=== PATIENT | male | born 1950 | race African-American/Black ===

== ENCOUNTER 2019-06-09 08:51 | Emergency (ER) | payer OTHER ==
[~2019-06-09] VITALS: Ht 175.3 cm; Wt 80.1 kg
[2019-06-09] MEDS ORDERED: IOVERSOL 350 MG/ML 100 ML VIAL ONE (09:02)
[2019-06-09] MEDS ORDERED: MULT-412 PO (09:10)
[2019-06-09] MEDS ORDERED: ASCO500 PO (09:10)
[2019-06-09] MEDS ORDERED: CETI10TA59 PO (09:10)
[2019-06-09] MEDS ORDERED: ASPI-891 PO (09:10)
[2019-06-09] MEDS ORDERED: METO25 PO (09:10)
[2019-06-09] MEDS ORDERED: TEST5GEL TD (09:10)
[2019-06-09] MEDS ORDERED: LOSA25TA41 PO (09:10)
[2019-06-09] MEDS ORDERED: SIMV-261 PO (09:10)
[2019-06-09] MEDS ORDERED: FERR134T2 PO (09:10)
[2019-06-09] MEDS ORDERED: IPRA3S NASAL (09:10)
[2019-06-09 09:17] LABS: BASOPHILS % (AUTO) 0.6 % (0.0-2.0); HEMATOCRIT 34.9 % (41-53); HEMOGLOBIN 11.8 g/dL (13.5-17.5); LYMPHOCYTES # (AUTO) 1.3 K/uL (1.0-4.8); LYMPHOCYTES % (AUTO) 35.2 % (22.0-44.0); MEAN CORPUSCULAR HEMOGLOBIN 31.8 pg (26.0-34.0); MEAN CORPUSCULAR HGB CONC 33.7 G/dL (31.0-37.0); MEAN CORPUSCULAR VOLUME 94 fL (80-100); MONOCYTES # (AUTO) 0.3 K/uL (0.1-1.0); NEUTROPHILS # (AUTO) 1.9 K/uL (1.8-7.7); NEUTROPHILS % (AUTO) 53.2 % (40.0-70.0); PLATELET COUNT (AUTO) 163 K/uL (150-450); RED CELL DISTRIBUTION WIDTH 14.6 % (11.5-14.5)
[2019-06-09 09:29] LABS: ANION GAP 4 mmol/L (8-16); CALCIUM, TOTAL 8.5 mg/dL (8.8-10.5); CARBON DIOXIDE 31 mmol/L (22-29); CHLORIDE 105 mmol/L (98-107); CREATININE 0.98 mg/dL (0.60-1.30); GLOMERULAR FILTR. RATE CALC > 60 mL/min (>60); GLUCOSE,RANDOM 73 mg/dL (70-110); POTASSIUM 4.2 mmol/L (3.5-5.1); SODIUM SERUM 140 mmol/L (136-145); UREA NITROGEN, BLOOD 15 mg/dL (7-18)
[2019-06-09 09:34] LABS: ALANINE AMINOTRANSFERASE 36 U/L (12-78); ALBUMIN 3.5 g/dL (3.4-5.0); ALKALINE PHOSPHATASE 196 U/L (46-116); ASPARTATE AMINOTRANSFERASE 26 U/L (15-37); BILIRUBIN,TOTAL 0.3 mg/dL (0.1-1.0); PROTHROMBIN TIME 10.5 SEC (9.4-11.6); TOTAL PROTEIN, SERUM 6.5 g/dL (6.4-8.2)
[2019-06-09 09:37] LABS: GLUCOSE,POINT OF CARE 79 MG/DL (70-110)
[2019-06-09] MEDS ORDERED: ASPIRIN 325 MG TABLET PO ONE (10:45)
[2019-06-09 11:04] VITALS: BP 128/69
[2019-06-09 12:11] LABS: APPEARANCE,URINE CLEAR (CLEAR); BILIRUBIN,URINE NEGATIVE (NEGATIVE); GLUCOSE, URINE (UA) NEGATIVE (NEGATIVE); KETONES,URINE NEGATIVE (NEGATIVE); LEUKOCYTE ESTERASE ,URINE NEGATIVE (NEGATIVE); NITRATE,URINE NEGATIVE (NEGATIVE); OCCULT BLOOD,URINE NEGATIVE (NEGATIVE); PROTEIN,URINE NEGATIVE (NEGATIVE); UROBILINOGEN,URINE 0.2 mg/dL (<=1.0)
[2019-06-09 12:25] LABS: AMPHET/METH SCREEN,URINE NEGATIVE (NEGATIVE); BARBITURATE SCREEN, URINE NEGATIVE (NEGATIVE); BENZODIAZEPINES SCREEN,URINE NEGATIVE (NEGATIVE); CANNABINOID SCREEN,URINE NEGATIVE (NEGATIVE); COCAINE SCREEN,URINE NEGATIVE (NEGATIVE); METHADONE SCREEN, URINE NEGATIVE (NEGATIVE); OPIATE SCREEN,URINE NEGATIVE (NEGATIVE)
[2019-06-09 12:26] LABS: BACTERIA,URINE None Seen /HPF (None Seen); PHENCYCLIDINE SCREEN,URINE NEGATIVE (NEGATIVE); RBC,URINE None Seen /HPF (0-2); WBC,URINE None Seen /HPF (0-5)
== END 2019-06-09 11:56 | disposition short-term general hospital (02) ==
LOC: EMS 08:52
DX: G45.9 Transient cerebral ischemic attack, unspecified (principal)
CPT/HCPCS: 36415; 70450; 70496; 71045; 80053; 80307; 81001; 82962; 84484; 85025; 85610; 85730; 86850; 86900; 86901; 93005; 99285; Q9967